=== PATIENT | male | born 1955 | race Caucasian/White ===

== ENCOUNTER → 2018-06-15 | Outpatient (CLI) | payer BC ==
[~2018-06-15] MED LIST: ALLO100T30 PO; AMLO10TA8 PO; ASPI-496 PO; CARV-39 PO; CHOL5000 PO; CYAN1TAB29 PO; FAMO-79 PO; HYDR-3342 PO; KRIL1CAP PO; MULT-658 PO; SIMV40TA3 PO; TELM80TA PO
== END | disposition home or self-care (01) ==
LOC: STAR 08:30
PROVIDERS: ATTEND Surgery
DX: Z01.818 Encounter for other preprocedural examination (principal); K43.9 Ventral hernia without obstruction or gangrene; I44.4 Left anterior fascicular block
CPT/HCPCS: 93005

== ENCOUNTER 2018-06-21 08:42 | Day surgery (SDC) | payer BC ==
[2018-06-15 09:16] VITALS: BP 134/84
[~2018-06-21] VITALS: Ht 172.7 cm; Wt 90.4 kg
[~2018-06-21 08:42] MED LIST changes: +BUPIVACAINE/PF-EPI 0.5% 1:200K ONE
[2018-06-21] MEDS ORDERED: LACTATED RINGERS 1,000 ML IV SCH (08:59)
[2018-06-21] MEDS ORDERED: GABAPENTIN 300 MG CAPSULE PO ONE (09:00)
[2018-06-21] MEDS ORDERED: ACETAMINOPHEN 500 MG TABLET PO ONE (09:00)
[2018-06-21 09:19] VITALS: BP 134/84
[2018-06-21] MEDS ORDERED: FENTANYL PF 250 MCG/5ML ONE (10:34)
[2018-06-21] MEDS ORDERED: MIDAZOLAM 1 MG/ML, 2ML ONE (10:34)
[2018-06-21] MEDS ORDERED: CEFAZOLIN 1,000 MG ONE ×2 (10:35)
[2018-06-21] MEDS ORDERED: WATER-INJECTION,STERILE 10 ML IV ONE (10:35)
[2018-06-21] MEDS ORDERED: GLYCOPYRROLATE 0.2MG/1ML, 5ML ONE (10:36)
[2018-06-21] MEDS ORDERED: NEOSTIGMINE 1 MG/ML, 10ML ONE (10:36)
[2018-06-21] MEDS ORDERED: ROCURONIUM 10 MG/ML,10ML ONE (11:17)
[2018-06-21] MEDS ORDERED: PROPOFOL 10 MG/ML, 20ML ONE (12:01)
[2018-06-21] MEDS ORDERED: ONDANSETRON 2MG/ML, 2ML ONE (12:02)
[2018-06-21] MEDS ORDERED: DEXAMETHASONE 4 MG/ML, 5ML ONE (12:02)
[2018-06-21] MEDS ORDERED: FENTANYL PF 100 MCG/2ML ONE (12:23)
[2018-06-21] MEDS ORDERED: OXYcodone 5 MG/5 ML ORAL.SOL UDC ONE (12:23)
[2018-06-21] MEDS ORDERED: FENTANYL PF 100 MCG/2ML IV PRN (12:30)
[2018-06-21] MEDS ORDERED: hydrALAzine 20 MG/ML, 1ML IV PRN (12:30)
[2018-06-21] MEDS ORDERED: PROMETHAZINE 25 MG/ML, 1ML IV PRN (12:30)
[2018-06-21] MEDS ORDERED: HYDROmorphone 2 MG/ML, 1ML IVPush PRN (12:30)
[2018-06-21] MEDS ORDERED: MEPERIDINE/PF 25MG/0.5ML IVPush PRN (12:30)
[2018-06-21] MEDS ORDERED: OXYcodone 5 MG/5 ML ORAL.SOL UDC PO PRN (12:30)
[2018-06-21] MEDS ORDERED: HALOPERIDOL 5 MG/ML IV PRN (12:30)
== END 2018-06-21 15:25 | disposition home or self-care (01) ==
LOC: OUT 08:42
PROVIDERS: ATTEND Surgery
DX: K43.6 Other and unspecified ventral hernia with obstruction, without gangrene (principal); I10 Essential (primary) hypertension; E11.9 Type 2 diabetes mellitus without complications; Z79.84 Long term (current) use of oral hypoglycemic drugs; M10.9 Gout, unspecified
CPT/HCPCS: 49653; 82962; C1781; J0690; J1100; J2250; J2405; J2704; J2710; J3010; J3490; J7120; S2900